=== PATIENT | male | born 1965 | race Caucasian/White ===

== ENCOUNTER 2020-11-11 14:12 | Emergency (ER) | payer SELFPAY ==
[~2020-11-11] VITALS: Ht 185.4 cm; Wt 103.0 kg
[2020-11-11] MEDS ORDERED: KETOROLAC 30 MG/1 ML IM ONE (15:00)
[2020-11-11] MEDS ORDERED: DIAZEPAM 5 MG TABLET PO ONE (15:00)
--- NOTE | 2020-11-11 15:40 | NUR ---
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
[2020-11-11] MEDS ORDERED: KETOROLAC 30 MG/1 ML ONE (16:10)
[2020-11-11] MEDS ORDERED: METHOCARBAMOL 750 MG TABLET ONE (16:10)
[2020-11-11] MEDS ORDERED: METHOCARBAMOL 750 MG TABLET PO ONE (16:30)
--- NOTE | 2020-11-11 17:29 | NUR ---
ASSUMED CARE FOR DISCHARGE ONLY Patient/Caregiver given discharge instructions and they have confirmed that they understand the instructions. Patient ambulatory with steady gait. NAD, all questions answered appropriately, denies additional needs at this time. No personal belongings left in room after discharge.
[2020-11-11 17:30] VITALS: BP 120/72
== END 2020-11-11 17:31 | disposition home or self-care (01) ==
LOC: ED 14:42
DX: S39.012A Strain of muscle, fascia and tendon of lower back, initial encounter (principal); X58.XXXA Exposure to other specified factors, initial encounter; Y93.89 Activity, other specified; Y92.89 Other specified places as the place of occurrence of the external cause; Y99.8 Other external cause status
CPT/HCPCS: 72110; 96372; 99283; J1885